=== PATIENT | male | born 1990 | race Caucasian/White ===

== ENCOUNTER 2024-02-12 17:46 | Emergency (ER) | payer OTHER, SELFPAY ==
[2024-02-12 17:50] VITALS: BP 173/103; PULSE 84; RESP 18; TEMP 36.6; O2SAT 98; BMI 29.9
--- NOTE | 2024-02-12 18:15 | ED_ITS ---
HPI - General Adult General Chief complaint: Skin/Abscess/Foreign Body Stated complaint: Upper Extremity Pain Time Seen by Provider: 02/12/24 17:53 Source: patient Mode of arrival: walk-in Limitations: no limitations History of Present Illness HPI narrative: Patient is a 33-year-old male who is presenting to the ER with chief complaint of infection to the fat pad of the left ring finger. Patient stated this has been ongoing for the past 2 to 3 days. Patient admits to biting his fingernails, he has extremely tiny fingernails from biting them as a nervous habit. Patient is right-hand dominant, patient is a teacher. Patient saw an urgent care 2 days ago, was placed on Bactrim. Patient is having more redness and swelling to the fat pad of the left ring finger. Patient has 4-5 superficial white pus pockets noted to the fat pad of left index finger. Patient was asked several times if he has any type of canker sores, cold sores, herpes virus simplex, any genital herpes, or any exposure to herpes at all and patient adamantly and emphatically states no. Patient is never had a felon or paronychia before. Patient states there is no chance of having any type of herpes infection to his finger at this time. No fever, chills, patient does have redness and swelling to the distal aspect of the left ring finger from the PIP distally, patient also has area of redness that is streaking up to the PIP joint, radial aspect of the left index finger. All systems are negative except as noted/marked. All systems reviewed and otherwise negative. Nurses note and vital signs reviewed and patient is not hypoxic. General: The patient appears well and in no apparent distress. Patient is resting comfortably on cart. Patient is not toxic, lethargic, or listless Skin: Warm, dry, no pallor noted. There is no rash noted. No petechiae, purpura. Head: Normocephalic, atraumatic, no oral sores, canker sores, or any type of herpes simplex 1 noted. Eye: Normal conjunctiva, no drainage, EOMI. PERRL Ears, Nose, Mouth, and Throat: oral mucosa is moist. Nares patent. Mouth without vesicles. Cardiovascular: Regular Rate and Rhythm, no murmur, gallop, rub Respiratory: Patient is in no distress, no accessory muscle use, lungs are clear to auscultation, no wheezing, rales or rhonchi Musculoskeletal: Patient has full range of motion of all of the extremities, patient does have redness and swelling to the distal aspect of the left ring finger from the PIP distally, patient also has area of redness that is streaking up to the PIP joint, radial aspect of the left index finger. Moderate to severe pain to palpation to the fat pad of left index finger. no motor, sensory, or focal neurological deficits. Patient has evidence of a felon to the left index finger. Neurological: A&O x4, normal speech Psychiatric: Cooperative Related Data Home Medications Medication Instructions Recorded Confirmed sulfamethoxazole 800 1 tab PO Q12H 02/12/24 02/12/24 mg-trimethoprim 160 mg tablet Previous Rx's Medication Instructions Recorded cephalexin 500 mg capsule 500 mg PO Q8H 7 days #21 caps 02/12/24 Allergies Allergy/AdvReac Type Severity Reaction Status Date / Time No Known Drug Allergies Allergy Verified 02/12/24 17:50 Exam Constitutional Vital Signs, click to edit/add: Last Vital Signs Temp 97.8 F 02/12/24 17:50 Pulse 84 02/12/24 17:50 Resp 18 02/12/24 17:50 BP 173/103 H 02/12/24 17:50 Pulse Ox 98 02/12/24 17:50 O2 Del Method Room Air 02/12/24 17:50 Course Vital Signs Vital signs: Vital Signs Temperature 97.8 F 02/12/24 17:50 Pulse Rate 84 02/12/24 17:50 Respiratory Rate 18 02/12/24 17:50 Blood Pressure 173/103 H 02/12/24 17:50 Pulse Oximetry 98 02/12/24 17:50 Oxygen Delivery Method Room Air 02/12/24 17:50 Temperature 97.8 F 02/12/24 17:50 Pulse Rate 84 02/12/24 17:50 Respiratory Rate 18 02/12/24 17:50 Blood Pressure 173/103 H 02/12/24 17:50 Pulse Oximetry 98 02/12/24 17:50 Oxygen Delivery Method Room Air 02/12/24 17:50 Medical Decision Making MDM Narrative Medical decision making narrative: Before procedure, I had a phone call conversation with patient and mother who was on speaker phone. I explained the procedure to patient's mother, explaining the diagnosis, treatment plan, and discharge diagnosis and plan. She was thankful for the discussion had bedside. See procedure note. Patient had 2 quarter-inch iodoform gauze placed. Patient had a 1 cm elliptical incisions made bilateral. A moderate amount of pus was extracted from the fat pad. The fat pad was irrigated with 400 mL of normal saline. Patient was given a Keflex tablet prior to discharge and will continue taking Bactrim and Keflex will be added. Patiient has an appointment at [address] on Thursday [address] Dr. Pitts. Patient is aware of this.Madison aware as well, He had no other further recommendations. Patient was very thankful for help and care. Patient is going to [place] tomorrow to having out and see his siblings. Patient is aware not to drink alcohol with Bactrim. Lengthy amount of time was spent on wound care this evening, tomorrow, and prior to following up with Dr. Pitts by myself and Mya RODRIGUEZ. Patient's Felon procedure well without difficulty, see procedure note. Discharge Plan Discharge Stand Alone Forms: Portal Instructions Chief Complaint: Skin/Abscess/Foreign Body Clinical Impression: Felon of finger Patient Disposition: Home, Self-Care Time of Disposition Decision: 19:14 Condition: Fair Prescriptions / Home Meds: New cephalexin 500 mg capsule 500 mg PO Q8H 7 Days Qty: 21 0RF No Action sulfamethoxazole-trimethoprim 800-160 mg tablet 1 tab PO Q12H Instructions: Paronychia (ED) Additional Instructions: I do not have education on FELON, paronychia is similar. This education was provided. Leave your iodoform packing until Thursday when you see Dr. Pitts You have an appointment at 10:00, Thursday, February 14 with the orthopedic surgeon. Take your dressing off that was applied in the ER tomorrow morning, wash your hands with warm soap and water, place another dry dressing to help absorb drainage. Try to avoid having the iodoform gauze strings pulled out, keep a dressing on your hand all weekend. He should not be drinking alcohol with Bactrim. Follow-up with orthopedic surgery on Thursday. You may take a shower and wash your hands tomorrow. Any other acute concerns before Thursday at 10 AM, follow-up with urgent care or return to ER if needed. Referrals: Physician,Non-Staff, [Primary Care Provider] - 1 week Discharge Date/Time: 02/12/24 19:30 Procedures ED Procedure Instructions Procedures Procedures: Left index finger Felon. I and D performed by . Incision and drainage: A single layer of iodine was used to prep the area. Drapes were placed to ensure isolation of the abscess and surrounding skin tissue. A Digital block was performed with 0.5 percent Marcaine and 1 percent lidocaine, 5 mL was used total To the left ring finger. Patient had good anesthetic effect.. Patient had 2 separate 1 cm elliptical incisions made with an 11 blade. A moderate amount purulent material was expressed, Mild amount of serosanguineous fluid as well.. Cultures were obtained and sent to the lab. The felon was explored, the use of hemostats were used to break up the septum and loculations within the abscess. The cavity was irrigated with 8 - 60 cc syringe of normal saline 4 Syriinge full stool each side of the felon. Plain, 0.25 packing was placed within the felon, and the iodoform gauze went through and through the felon, inside one incision and out the other incision.. Xeroform, A dry sterile dressing was placed. Patient tolerated the procedure well and will be discharged with Keflex, Bactrim. Patient will use Tylenol Motrin alternating every 4 hours for pain.. Patient is to follow-up in the next 2-3 days with PCP or ED to have area evaluated.
[2024-02-12] MEDS: BUPIVACAINE HCL 0.5% PF 50 MG/10 ML VIAL 5 ML INJ (18:28)
[2024-02-12] MEDS: SODIUM CHLORIDE 0.9% IRRIG SOLUTION 1,000 ML BOTTLE 1000 ML IRR (18:29)
[2024-02-12] MEDS: LIDOCAINE HCL 1% PF 20 MG/2 ML VIAL 4 ML INJ (18:32)
[2024-02-12] MEDS: CEPHALEXIN 500 MG CAPSULE PO (19:30)
== END 2024-02-12 19:30 | disposition home or self-care (01) ==
PROVIDERS: Emergency Provider Emergency Medicine
DX: L03.012 Cellulitis of left finger (principal)
CPT/HCPCS: 26010; 99283